=== PATIENT | male | born 1930 | race Caucasian/White ===

== ENCOUNTER 2016-12-31 18:00 | Inpatient (IN) | payer MEDICARE ==
[~2016-12-31] VITALS: Ht 167.6 cm; Wt 68.2 kg
[2016-12-31 18:37] LABS: BASOPHILS 0.3 % (0-2); EOSINOPHILS 0.5 % (0-7); HEMATOCRIT 43.3 % (42.0-54.0); HEMOGLOBIN 14.9 g/dL (13.5-17.5); IMMATURE GRANULOCYTES 0.2 % (0-5); LYMPHOCYTES 35.8 % (15-50); MCH 34.1 pg (26.0-34.0); MCHC 34.4 g/dL (31.0-37.0); MCV 99.1 fL (80.0-100.0); MEAN PLATELET VOLUME 11.7 fL (7.4-10.4); MONOCYTES 10.1 % (2-11); NEUTROPHILS 53.1 % (40-80); PLATELET COUNT 170 10x3/uL (130-400); RBC 4.37 10x6/uL (4.20-6.10); RDW 12.4 % (11.5-14.5); WBC 6.5 10x3/uL (4.8-10.8)
[2016-12-31 18:41] LABS: APPEARANCE CLEAR (CLEAR); BILIRUBIN NEGATIVE (NEGATIVE); COLOR YELLOW (YELLOW); GLUCOSE NEGATIVE (NEGATIVE); KETONE NEGATIVE (NEGATIVE); NITRITE NEGATIVE (NEGATIVE); PROTEIN NEGATIVE (NEGATIVE); SPECIFIC GRAVITY 1.015 (1.005-1.020); UROBILINOGEN NORMAL (NORMAL)
[2016-12-31 18:54] LABS: ALBUMIN 3.9 g/dL (3.4-5.0); ALKALINE PHOSPHATASE 91 U/L (46-116); ALT (SGPT) 15 U/L (10-68); BILIRUBIN - TOTAL 0.99 mg/dL (0.2-1.3); CALC OSMOLALITY 285 mosm/kg (275-300); CALCIUM 9.1 mg/dL (8.5-10.1); CARBON DIOXIDE 29.4 mmol/L (21.0-32.0); CHLORIDE - SERUM 106 mmol/L (98-107); GLUCOSE 106 mg/dL (74-106); POTASSIUM - SERUM 3.9 mmol/L (3.5-5.1); PROTEIN - SERUM 7.7 g/dL (6.4-8.2); SODIUM 143 mmol/L (136-145); UREA NITROGEN 15 mg/dL (7-18); eGFR NON AFRICAN AMERICAN 75 mL/min (90-120)
[2016-12-31 19:06] LABS: MAGNESIUM - SERUM 2.1 mg/dL (1.8-2.4)
[2016-12-31 19:08] LABS: UDS - AMPHET NEGATIVE QUAL (NEGATIVE); UDS - BARB NEGATIVE QUAL (NEGATIVE); UDS - BENZO NEGATIVE QUAL (NEGATIVE); UDS - COCAINE NEGATIVE QUAL (NEGATIVE); UDS - OPIATE NEGATIVE QUAL (NEGATIVE); UDS - PCP NEGATIVE QUAL (NEGATIVE); UDS - THC NEGATIVE QUAL (NEGATIVE)
[2016-12-31 23:27] LABS: HEMOGLOBIN A1C 5.7 % (4.8-6.0)
[2016-12-31 23:44] LABS: CHOL - HDL RATIO 4.1 ratio (2.3-4.9); LDL-HDL RATIO 2.8 ratio (1.5-3.5); THYROID STIMULATING HORMONE 2.13 uIU/mL (0.36-3.74)
--- NOTE | 2017-01-01 00:01 | NUR ---
NEW ADDMIT TO DOCTOR HAYES FROM [facility] FOR ISSUES RELATED TO AN ACUTE CHANGE IN MENTAL STATUS. PATIENT WAS FOUND TODAY BALLED UP ON THE FLOOR. SAYING HE IS GOING TO KILL HIS VA DOCTOR. FAMILY STATES HE HAS BEEN MILDLY AGGRESSIVE RECENTLY. RECEIEVED TO SENIOR VIA WHEELCHAIR WITH STAFF AND FAMILY BY HER SIDE. CALLED AND RECIEVED TELEPHONE CONSENT TO TREAT FROM PATIENTS . PATIENT STATES HE WANTS TO TALK TO HIS ABOUT HIS CODE STATUS. ALERT AND ORIENTED X2. CALM AND COOPERATIVE WITH ADMIT ASSESSMENT AND HISTORY. ORIENTED TO UNIT.
[2017-01-01 07:00] VITALS: BP 146/77
--- NOTE | 2017-01-01 08:30 | NUR ---
PT EATING BREAKFAST AT THIS TIME. NO MEDS TO ADMINISTER AT THIS TIME. PT DENIES NEEDS. WCTM.
[2017-01-01] MEDS ORDERED: ZANTAC150 MG PO (12:58)
[2017-01-01] MEDS ORDERED: BAYER CHEWABLE81 MG PO (12:59)
[2017-01-01] MEDS ORDERED: CARBIDOPA-LEVO1 EAC2 PO (13:00)
[2017-01-01] MEDS ORDERED: ARICEPT10 MG PO (13:01)
[2017-01-01] MEDS ORDERED: FLOMAX0.4 MG PO (13:02)
[2017-01-01] MEDS ORDERED: SINEMET 25-1001 EACH PO (13:08)
[2017-01-01 20:00] VITALS: BP 158/109
--- NOTE | 2017-01-01 20:47 | NUR ---
RECEIVED IN HALLWAY. WALKING TO HIS ROOM AT BEDTIME. VERY CONFUSED. CALM AND COOPERATIVE WITH CARE AND ASSESSMENTS. REDIRECT AND REORIENT NEEDED. RESTING IN BED WITH EYES CLOSED AT THIS TIME. CONTINUE PLAN OF CARE
--- NOTE | 2017-01-02 00:01 | NUR ---
PATIENT BECOMING INCREASINGLY ANXIOUS. WANTING TO LEAVE AND GO SEE HIS DOCTOR. UNABLE TO REDIRECT AND REORIENT. PRN ATIVAN 0.5 MG IM GIVEN FOR ANXIETY
--- NOTE | 2017-01-02 01:30 | NUR ---
CONTINUES TO HAVE INCREASING ANXIETY. RESIST REDIRECTION. EXIT SEEKING. PRN GEODON 10 MG GIVEN FOR INCREASING ANXIETY.
[2017-01-02 06:14] LABS: RAPID PLASMA REAGIN Non Reactive (Non Reactive)
[2017-01-02 08:19] LABS: VITAMIN D 25 HYDROXY 27.5 ng/mL (30.0-100.0)
[2017-01-02 08:59] VITALS: BP 140/85
--- NOTE | 2017-01-02 11:52 | PSY ---
PATIENT NAME:LUCILA TSE MEDICAL RECORD: [id number] : 30 LOCATION:ONEL [facility] ADMISSION DATE: 12/31/16 ACCOUNT: [id number] PSYCHIATRIC EVALUATION DATE OF EVALUATION: 01/01/17 IDENTIFYING DATA: The patient is 86 years old and he is admitted to the hospital on a voluntary basis. CHIEF COMPLAINT: Aggression. HISTORY OF PRESENT ILLNESS: The patient lives at home with his of more than 60 years. The family reports that the patient has a long-standing diagnosis of dementia and that recently he has become increasingly confused and angry. Some days are worse than others. He was brought to the Emergency Room yesterday after having several consecutive days where he was angry with the [facility]. Although anyone who has dealt with the [facility] understands his frustration, the anger is just in a way generalized, does not make much sense, and he is threatening to kill the [facility] doctors along with his . When asked about this today, he denies it, but it is clear he is very confused. He is most concerned about a locked cabinet in the dayroom kitchen area where supplies are kept and he thinks that his belongings are locked up in there and he is very focused on me giving him a jiménez to let him get his things so he can be on his way. PAST MEDICAL HISTORY: Significant for benign prostatic hypertrophy and gastroesophageal reflux disease. PAST PSYCHIATRIC HISTORY: Significant for diagnosis of Alzheimer disease made about 2 years ago. The patient apparently was having cognitive slippage about 10 years ago. FAMILY HISTORY: Unknown. ALLERGIES: No known drug allergies. CURRENT MEDICATIONS: Include aspirin, Flomax, Pepcid, Aricept, and Sinemet. SOCIAL HISTORY: The patient is . He has adult children. 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 Coming at this from a number of different angles was not successful. 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 He denies cigarette smoking, alcohol use, and of course drug use. MENTAL STATUS EXAMINATION: The patient is awake; alert; and oriented to person, place, not to time or situation. His mood is anxious. His affect is constricted. Thought processes are circumstantial. Memory, concentration, and abstraction abilities are at least moderately impaired. He denies any active intent to harm himself or others at this time. ASSETS: Supportive family members. LIABILITIES: Limited insight. DIAGNOSTIC IMPRESSION: AXIS I: Senile dementia of the Alzheimer's type with behavioral disturbances. AXIS II: None. AXIS III: Parkinson disease, benign prostatic hypertrophy, gastroesophageal reflux disease, and hyperlipidemia. AXIS IV: Mild psychosocial stressors. AXIS V: Global assessment of functioning is 25. PLAN: At this time, the patient is admitted to the hospital secondary to aggression and threats that are generalized and are related to an underlying dementing illness. He will be comprehensively evaluated from both medical, psychological, and social standpoint. His long-term prognosis is guarded. TRANSINT:[id number] Voice Confirmation ID: [id number] DOCUMENT ID: [id number] ROSARIO HAYES MD at 1152 CC: [id number] DICTATION DATE: 01/01/17 1406 LEAD NUCLEAR MEDICINE TECHNOLOGIST: 01/01/17 1444 ADM IN [facility] [address] [place] [address]
[2017-01-02 14:19] LABS: FOLATE (FOLIC ACID) - SERUM >20.0 ng/mL (>3.0)
[2017-01-02 19:35] VITALS: BP 131/67
--- NOTE | 2017-01-03 02:03 | NUR ---
RECEIVED IN HALLWAY OUTSIDE OF NURSES STATION. WALKING AROUND. VERY CONFUSED. CALM AND COOPERATIVE [facility] CARE AND ASSESSMENT. ENCOURAGE TO EXPRESS NEEDS. REDIRECT AND REORIENT NEEDED. RESTING IN BED WITH EYES CLOSED AT THIS TIME. CONTINUE PLAN OF CARE.
--- NOTE | 2017-01-03 08:21 | NUR ---
B) PATIENT IS AWAKE, HE WANDERS ALL OVER, HE IS ABLE TO AMBULATE WELL ON HIS OWN, BUT HE IS CONFUSED, HE KNOWS HIS NAME, BUT HE HAS NO RECALL. I) PROVIDE PRESCRIBED MEDS. R) PATIENT IS COMPLIANT WITH MEDS. P) CONTINUE POC.
[2017-01-03 09:52] VITALS: BP 120/81
--- NOTE | 2017-01-03 10:11 | NUR ---
ENOCH SPOKE WITH JENN RICKETTS, TO DISCUSS DISCHARGE PLANNING. SHE STATED SHE WANTED PPW SENT TO [facility]. SHE STATED THE PT'S HAS REFUSED PT CARE AND ASKED THEM TO HANDLE HIM BECAUSE SHE COULD NO LONGER HANDLE HIM IN THE HOME ENVIRONMENT. JENN STATED THAT IS WHY SHE SIGNED HIM INTO CARE. ENOCH STATED SHE WILL SEND PPW TO IN REQUESTED.
--- NOTE | 2017-01-03 14:06 | PN ---
PATIENT:LUCILA TSE MEDICAL RECORD: [id number] LOCATION:ONEL Gómez ADMISSION DATE: 12/31/16 PROGRESS NOTE DATE OF SERVICE: 01/02/2017 SUBJECTIVE: The patient's case was discussed with staff. He has no new complaint. OBJECTIVE: The patient is in good behavioral control with limited insight about his condition. He tolerates his medicines well. ASSESSMENT: No change in diagnoses. PLAN: Brief supportive and educational interventions were made. Fpc prognosis is guarded. TRANSINT:[id number] Voice Confirmation ID: [id number] DOCUMENT ID: [id number] ROSARIO HAYES MD at 1406 CC: [id number] DICTATION DATE: 01/02/17 1439 VENDING MACHINE HOST/HOSTESS: 01/02/17 1532 ADM IN [place] [id number] [place] [address]
--- NOTE | 2017-01-03 15:16 | NUR ---
ENOCH SPOKE WITH PT'S HAKEEM ALMANZAR AND HE STATED HE WANTED TO TRANSFER PT TO [facility] TO RECIEVE SERVICES DUE TO HIM HAVING BAD DEMENTIA. ENOCH STATED HE IS RECIEVING SERVICES FOR HIS DEMENTIA HERE ON THE UNIT. ALINE STATED HE DID NOT REALIZE HE WAS GETTING THOSE SERVICES. HE STATED HIS AND CAIO (PT'S ) SPOKE WITH HIM BECAUSE PT'S SON AND DIL WANTED BANK RECORDS TO GIVE TO [facility]. ALINE STATED PT HAS NOT BEEN TO THE DOCTOR IN SOME TIME DUE TO PT AND NOT BEING ABLE TO GET AROUND. ALINE STATED BOTH PT AND HIS ARE HAVING PROBLEMS WITH MEMORY. ENOCH CALLED PT'S DIL AND REPORTED CONVERSATION. DIL AND SON ARE GOING TO GET GUARDIANSHIP OVER PT TOMORROW DUE TO THE POOR CARE IN THE HOME ENVIRONMENT AND WANTING TO PLACE PT IN APPROPRIATE LEVEL OF CARE.
[2017-01-03 19:44] VITALS: BP 123/78
--- NOTE | 2017-01-04 02:02 | NUR ---
B) patient is alert and oriented to name, confused and wanders at times, ambulates independantly, no aggression noted I) Administered scheduled medications, monitored for safety, R) Medication compliant, very confused and keeps to himself, P) Continue plan of care.
--- NOTE | 2017-01-04 09:30 | NUR ---
PATIENT'S DAUGHTER IN LAW CALLED AND REQUESTS THAT IGNACIO CALL HER TO HELP HER EXPLAIN THE NECESSARY STEPS TO GET GUARDIANSHIP OVER PATIENT.
[2017-01-04 09:52] VITALS: BP 134/87
--- NOTE | 2017-01-04 11:20 | NUR ---
B) PATIENT IS AWAKE AND ALERT, BUT HE HAS POOR SHORT TERM MEMORY RECALL, STAFF HAD TO REMIND HIM TO PUT HIS TEETH IN THIS AM BEFORE BREAKFAST AND STAFF HAD TO SHOW HIM HIS ROOM AND BATHROOM MULTIPLE TIMES. PATIENT AMBULATES INDEPENDENTLY. PATIENT HAS NOT SHOWN ANY AGGRESSION TODAY. I) PROVIDE PRESCRIBED MEDS. R) PATIENT IS COMPLIANT WITH MEDS. P) CONTINUE POC.
--- NOTE | 2017-01-04 12:48 | NUR ---
PATIENT'S DAUGHTER IN LAW CALLED AGAIN AND REQUESTS THAT IGNACIO CALL HER TO ASSIST HER WITH FURTHER INFORMATION ON HOW TO HANDLE THE GUARDIANSHIP PROCESS.
--- NOTE | 2017-01-04 14:14 | NUR ---
ENOCH SPOKE WITH PT'S 'S NIECE THIS MORNING AND SHE STATED SHE WANTED TO HAVE PT MOVE INTO A PR FOSTER HOME. ENOCH EXPLAINED PT COULDN'T GO INTO ONE OF THOSE HOMES DUE TO HIS SEVERITY OF HIS DEMENTIA. ENOCH STATED PT NEEDS TO BE PLACED IN A 24/7 CARE ENVIRONMENT LIKE A SKILLED NURSING OR MEMORY CARE UNIT. SHE STATED SHE WOULD SPEAK TO PT'S ABOUT PLACEMENT. SHE STATED THEY WERE THINKING ABOUT [facility]. ENOCH REPORTED PT'S LILIAM BARAJAS WAS TRYING TO HELP PT'S PLACE HIM THERE BUT NEEDED RECORDS [place] WAS REQUESTING. ENOCH STATED IF SHE WAS UNCOMFORTABLE GIVING JENN RECORDS SHE COULD TURN THEM DIRECTLY INTO THE [place] HERSELF. ENOCH RETURNED A PHONE CALL FROM JENN IN THE AFTERNOON. SHE STATED THEY HAVE WENT TO SEE TYRONE HOLT AND WILL BE FILING FOR TEMPORARY EMERGENCY GUARDIANSHIP OVER PT DUE TO THE CONDITION AND LACK OF CARE HE HAS RECIEVED IN THE HOME ENVIRONMENT. SHE STATED SHE WENT TO GO PROPERTY MAINTENANCE SUPERVISOR THE RECORDS FROM PT'S AND WAS KICKED OFF THE PROPERTY BY PT'S STEP SON. SHE ASKED IF COMING FOR A VISIT WOULD BE TOO MUCH TODAY AND ENOCH STATED PT CAN ONLY HAVE TWO VISITORS AT A TIME. ENOCH ALSO STATED SINCE ALL INVOLVED ARE HIGH ON EMOTIONS IF AN ARGUMENT BROKE OUT ALL WOULD BE ASKED TO LEAVE THE UNIT BECAUSE IT IS NOT IN THE BEST INTEREST OF THE PATIENT. JENN VOICED UNDERSTANDING OF DISCUSSION AND STATED SHE WILL WAIT TO VISIT.
--- NOTE | 2017-01-04 14:26 | PN ---
PATIENT:LUCILA TSE MEDICAL RECORD: [id number] LOCATION:ONEL PerazaDignaJuan ADMISSION DATE: 12/31/16 PROGRESS NOTE DATE OF SERVICE: 01/03/2017 SUBJECTIVE: The patient's case was discussed with staff. He has no new complaint. OBJECTIVE: The patient is severely impaired cognitively. At times, he becomes agitated, but I think that is more related to the fact that he does not understand what is going on then to some other factor. ASSESSMENT: No change in diagnoses. PLAN: Supportive and educational interventions were made. Detention prognosis is guarded. TRANSINT:[id number] Voice Confirmation ID: [id number] DOCUMENT ID: [id number] ROSARIO HAYES MD at 1426 CC: [id number] DICTATION DATE: 01/03/17 1418 PLATING INSPECTOR: 01/03/17 1450 ADM IN [place] [address] [place] [id number]
[2017-01-04 19:37] VITALS: BP 131/73
--- NOTE | 2017-01-04 22:42 | NUR ---
B) patient is alert and oriented to self, restless and wanders at times, difficult to redirect at times, needs constant supervision, I) Administered scheduled medications, monitored for safety, R) Medication compliant, resting quietly in bed now. P) Continue plan of care.
[2017-01-05 06:28] VITALS: Ht 167.6 cm; Wt 68.2 kg
--- NOTE | 2017-01-05 08:43 | NUR ---
B) PATIENT IS AWAKE, HE IS VERY CONFUSED, HE DOES NOT KNOW WHERE HE IS LOCATED, HE CAN NOT RECALL ONE MINUTE TO THE NEXT. HE WAS REMINDED MULTIPLE TIMES TO PUT HIS TEETH IN AND HE DID NOT COMPREHEND, BUT THEN AT THE BREAKFAST TABLE HE SAID "HEY, I NEED MY TEETH" PATIENT AMBULATES AND HE WANDERS AT TIMES. HIS DID CALL AND CHECK ON HIM AND HIS SON AND DAUGHTER IN LAW CALLED TO CHECK ON HIM WELL. I) PROVIDE PRESCRIBED MEDS. R) PATIENT IS COMPLIANT WITH MEDS AND UNIT MILIEU. P) CONTINUE POC.
--- NOTE | 2017-01-05 09:32 | NUR ---
PATIENT WAS CHEWING HIS ROMERO AND HIS FRONT TOOTH BROKE OFF, PATIENT SAID HE THREW IT AWAY. TOOTH IS MISSING FROM TOP DENTURE.
[2017-01-05 09:44] VITALS: BP 141/68
--- NOTE | 2017-01-05 11:31 | PN ---
PATIENT:LUCILA TSE MEDICAL RECORD: [id number] LOCATION:ONEL MohamudJuan ADMISSION DATE: 12/31/16 PROGRESS NOTE DATE OF SERVICE: 01/04/2017 SUBJECTIVE: The patient's case was discussed with staff. She has no new complaint. OBJECTIVE: The patient is in poor behavioral control and very delusional. She has required multiple p.r.n. doses of Haldol and Ativan because of her agitated behavior. She has very limited insight about her condition. ASSESSMENT: No change in diagnoses. PLAN: Current medicines have been reviewed and will be maintained. Her long-term prognosis is guarded. TRANSINT:[id number] Voice Confirmation ID: [id number] DOCUMENT ID: [id number] ROSARIO HAYES MD at 1131 CC: [id number] DICTATION DATE: 01/04/17 1436 CONTAINER WASHER MACHINE: 01/04/17 2109 ADM IN [place] [id number] [place] [id number]
--- NOTE | 2017-01-05 11:31 | PN ---
PATIENT:LUCILA TSE MEDICAL RECORD: [id number] LOCATION:ONEL Gómez ADMISSION DATE: 12/31/16 PROGRESS NOTE DATE OF SERVICE: 01/04/2017 SUBJECTIVE: The patient's case was discussed with staff. He has no new complaint. OBJECTIVE: The patient is severely impaired cognitively with very poor insight about his situation. He is difficult to redirect. ASSESSMENT: No change in diagnoses. PLAN: The patient has a very advanced dementia. This is a late stage disease and I am not sure how he has been able to live at home with his . I was later told that there are some adult children who live in the house, which would explain things, but he clearly is quite advanced and all of the symptoms he is displaying are consistent with an advanced dementia. He absolutely requires 08-icyo-o-day supervision. To do less than that would put him at risk. His assisted prognosis is quite poor and he already is showing signs of the terminal phase of the disease by not eating adequately and losing weight. Based on this, I am going to give him Megace to stimulate his appetite. TRANSINT:[id number] Voice Confirmation ID: [id number] DOCUMENT ID: [id number] ROSARIO HAYES MD at 1130 CC: [id number] DICTATION DATE: 01/04/17 1438 SHOP COOPER: 01/04/17 2112 ADM IN [place] [id number] [place] [address]
[2017-01-05 19:30] VITALS: BP 115/86
--- NOTE | 2017-01-06 03:41 | NUR ---
B) Patient is alert and very confused, wanders at times, difficult to redirect I) Administered scheduled medications, monitored for falls and safety R) Medications compliant, calm and cooperative, P) Continue plan of care.
--- NOTE | 2017-01-06 06:01 | PN ---
PATIENT:LUCILA TSE MEDICAL RECORD: [id number] LOCATION:ONEL Gómez ADMISSION DATE: 12/31/16 PROGRESS NOTE DATE OF SERVICE: 01/05/2017 SUBJECTIVE: No new complaint. OBJECTIVE: The patient is very pleasant on approach. He discusses his past occupation, but remains confused. PHYSICAL EXAMINATION: On exam, mood is euthymic. Affect is bland. Speech is tangential. Content of thought is negative for overt psychosis. Sensorium is unchanged. ASSESSMENT: No change in diagnosis. PLAN: 1. Case management is working on jail placement. 2. We will continue all current medications and supportive therapy. TRANSINT:[id number] Voice Confirmation ID: [id number] DOCUMENT ID: [id number] JUAN JOSE CASANOVA III, MD at 0601 CC: [id number] DICTATION DATE: 01/05/17 1115 BOX HINGE AND LOCK ATTACHER: 01/05/[address] [facility] [address] [place] [address]
[2017-01-06 07:00] VITALS: BP 134/79
--- NOTE | 2017-01-06 15:40 | NUR ---
CONFUSED AND DISORIENTED.DOES NOT KNOW WHY HE IS HERE AND WANTS TO GO HOME.AMBULATES ABOUT UNIT WITH FAIRLY STEADY GAIT.COMPLIANT WITH MEDS,CRUSHED AND TAKEN IN APPLESAUCE.RASHARD CONTINUE WITH PLAN OF CARE,MONITOR FOR CHANGES AND SAFETY.
[2017-01-06 19:30] VITALS: BP 118/82
--- NOTE | 2017-01-07 02:11 | NUR ---
RECEIVED IN PATIENT ROOM. RESTING IN BED WITH EYES CLOSED. AWAKES TO VOICE. CALM AND COOPERATIVE WITH CARE AND ASSESSMENT. NO SIGNS OF AGGRESSION. VERY CONFUSED. ENCOURGAE TO EXPRESS NEEDS. REDIRECT AND REORIENT NEEDED. RESTING IN BED WTIH EYES CLOSED AT THIS TIME. CONTINUE PLAN OF CARE.
[2017-01-07 07:00] VITALS: BP 123/53
--- NOTE | 2017-01-07 08:45 | NUR ---
PATIENT IS ORIENTED TO SELF ONLY. CALM AND COOPERATIVE WITH STAFF AND PEERS. ASSESSMENT COMPLETED PER FLOW SHEET. MONITOR FOR SAFETY AND CHANGES. WILL CONTIN UE PLAN OF CARE.
[2017-01-07 19:30] VITALS: BP 117/81
--- NOTE | 2017-01-07 21:06 | NUR ---
RECEIVED IN BEDROOM. ASSIST TO BATHROOM. CALM AND COOPERATIVE WITH CARE AND ASSESSMENTS. NO SIGNS OF AGGRESSION. REDIRECT AND REORIENT NEEDED. RESTING IN BED EYES CLOSED AT THIS TIME. CONTINUE PLAN OF CARE
[2017-01-08 07:00] VITALS: BP 142/111
--- NOTE | 2017-01-08 10:07 | NUR ---
LATE ENTRY FROM 01/04 SW MET WITH PT'S AND PT'S CAIO, YOON. YOON SPOKE FOR THE STATING SHE IS UNABLE TO PROCESS THE CONVERSATION. YOON REQUESTED SW CALL NIECE, MINO, TO DISCUSS DISCHARGE PLANNING. SW STATED PT NEEDS 24/7 CARE AND HIS DISEASE PROGRESSION. FAMILY AGREES TO PT NEEDS TO BE PLACED IN SHELTER SETTING. SW DISCUSSED FAMILY CALLING NURSING HOMES STATING THE UNIT COULDN'T GET HIM UNDER CONTROL. ENOCH REPORTED PT HAS BEEN IN CONTROL SINCE BEGINNING STAY AND HE IS BEING MAINTAINED WITH MEDICATION AND SUPPORT THERAPIES. MINO STATED SHE WAS TOLD THE OPPOSITE AND APOLOGIZED FOR REPORTING OFF TO [place]. SW EXPLAINED SHE WAS WANTING TO CLARIFY SO NO MISCOMMUNICATIONS TO FACILITIES WOULD TAKE PLACE IN THE FUTURE. YOON AND MINO VOICED UNDERSTANDING OF DISCUSSION.
--- NOTE | 2017-01-08 10:10 | NUR ---
ASSESSMENT COMPLETED PER FLOW SHEET. PLEASANT MOOD, CALM AND COPERATIVE WITH STAFF. COMPLIANT TAKING MEDICATIONS CRUSHED IN APPLESAUCE. REDIRECT AND REORIENT NEEDED. MONITOR FOR SAFETY AND CHANGES. WILL CONTINUE PLAN OF CARE.
[2017-01-08 19:34] VITALS: BP 138/82
--- NOTE | 2017-01-08 21:17 | NUR ---
RECEIVED IN HALLWAY. WALKING ABOUT. VERY CONFUSED. CALM AND COOPERATIVE WITH CARE AND ASSESSMENTS. NO SIGNS OF AGGRESSION. REDIRECT AND REORIENT NEEDED. CONTINUES TO MOVE ABOUT ROOM. VERY CONFUSED. CONTINUE PLAN OF CARE
[2017-01-09 07:00] VITALS: BP 118/72
--- NOTE | 2017-01-09 08:30 | NUR ---
ORIENTED TO SELF ONLY. CALM AND COOPERATIVE WITH STAFF AND PEERS. COMPLIANT WITH TAKING MEDICATIONS. REDIRECT AND REORIENT NEEDED. CONTINUE PLAN OF CARE.
--- NOTE | 2017-01-09 13:50 | PN ---
PATIENT:LUCILA TSE MEDICAL RECORD: [id number] LOCATION:ONEL Gómez ADMISSION DATE: 12/31/16 PROGRESS NOTE DATE OF SERVICE: 01/08/2017 SUBJECTIVE: The patient's case was discussed with staff. He has no new complaint. OBJECTIVE: The patient denies intent to harm himself or others. He generally tolerates his medicines well. He is severely impaired cognitively. ASSESSMENT: No change in diagnoses. PLAN: The patient will be maintained on current medicines, which I have reviewed. I am going to increase the dose of his Namenda slightly. He is likely to have court appearance sometime this week for the guardianship and placement, we will follow that. He is severely impaired and his also has dementia and cannot care for him. The son has applied for guardianship and he seems to be the most reasonable person to accept this responsibility and there is no evidence that he has anything, but the best interest of the patient in mind. TRANSINT:[id number] Voice Confirmation ID: [id number] DOCUMENT ID: [id number] ROSARIO HAYES MD at 1350 CC: [id number] DICTATION DATE: 01/08/17 1436 INTAKE CLINICIAN: 01/08/17 1517 ADM IN [place] [address] [place] [address]
--- NOTE | 2017-01-09 13:56 | NUR ---
Nutrition Follow Up: Pt is eating 61% meal avg on a regular diet. +BM 01/05/17. Labs reviewed. Meds noted including Megace. Rec continue current diet. Rec continue appetite stimulant. RD following.
--- NOTE | 2017-01-09 19:51 | NUR ---
RECEIVED IN BEDROOM. MOVING ABOUT ROOM GETTING READY FOR BED. VERY CONFUSED. CALM AND COOPERATIVE WITH CARE AND ASSESSMENTS. NO SIGNS OF AGGRESSION. REDIRECT AND REORIENT NEEDED. RESTING EYES CLOSED IN BED. CONTINUE PLAN OF CARE
[2017-01-09 20:10] VITALS: BP 145/101
--- NOTE | 2017-01-10 09:30 | NUR ---
Alert, appetite good for b'fast, no difficulty feeding self, cooperative, quiet, med-compliant, confused. Oriented to self. Difficulty with conversation. No pain voiced. Denies needs.
[2017-01-10 09:36] VITALS: BP 133/75
--- NOTE | 2017-01-10 12:46 | PN ---
PATIENT:LUCILA TSE MEDICAL RECORD: [id number] LOCATION:ONEL Gómez ADMISSION DATE: 12/31/16 PROGRESS NOTE DATE OF SERVICE: 01/09/2017 SUBJECTIVE: The patient's case was discussed with staff. He has no new complaint. OBJECTIVE: The patient is intermittently compliant with medications. He is severely impaired cognitively. ASSESSMENT: No change in diagnoses. PLAN: Supportive and educational interventions were made. I have reviewed the patient's medications and I am going to stop or hold the Geodon for at least 12 hours to see if perhaps it is causing a little bit of excessive sedation. He may well need it at this dose or even at a lower dose, but I will not know for a day or so. TRANSINT:[id number] Voice Confirmation ID: [id number] DOCUMENT ID: [id number] ROSARIO HAYES MD at 1246 CC: [id number] DICTATION DATE: 01/09/17 1406 GEAR STRAIGHTENER: 01/09/17 1415 ADM IN [place] [address] [place] [address]
--- NOTE | 2017-01-10 18:28 | NUR ---
Sitting in dayroom, resting in recliner, eyes closed, resp even and unlabored, quiet and cooperative this shift.
[2017-01-10 19:19] VITALS: BP 146/81
--- NOTE | 2017-01-10 22:39 | NUR ---
RECEIVED IN PATIENT ROOM. RESTING IN BED WITH EYES OPEN. CALM AND COOPERATIVE WITH CARE AND ASSESSMENT. VERY CONFUSED. NO SIGNS OF AGGRESSION. REDIRECT AND REORIENT NEEDED. ENCOURAGE TO EXPRESS NEEDS. RESTING IN BED WITH EYES CLOSED AT THIS TIME. CONTINUE PLAN OF CARE.
[2017-01-11 08:11] VITALS: BP 153/83
--- NOTE | 2017-01-11 08:46 | NUR ---
B) PATIENT IS AMBULATING INDEPENDENTLY, HE IS CONFUSED AND DOES NOT MAKE ANY SENSE. HE IS PLEASANT AND HAS NOT SHOWN ANY AGGRESSION TODAY. HE HAS TO HAVE MANY PROMPTS TO WEAR HIS DENTURES AND GLASSES. I) PROVIDE PRESCRIBED MEDS. R) PATIENT IS COMPLIANT WITH MEDS AND UNIT MILIEU. P) CONTINUE POC.
--- NOTE | 2017-01-11 09:40 | NUR ---
SW CALLED TO SPEAK TO PT'S , BRYAN, ON HER REQUEST. NO ANSWER WHEN ATTEMPTED PHONE CALL.
--- NOTE | 2017-01-11 09:43 | NUR ---
ENOCH SPOKE WITH , BRYAN, SHE STATED SHE WANTS TO TAKE THE PATIENT HOME WHEN DOCTORS THINK HE IS STABLE ENOUGH TO DISCHARGE. SHE STATED SHE WILL NOT PLACE HIM IN A FACILITY BECAUSE SHE NEEDS HIM HOME. ENOCH STATED IT IS NOT RECOMMENDED FOR PT TO GO INTO THE HOME ENVIRONMENT WITHOUT 24/7 CARE DUE TO HIS COGNITIVE DECLINE AND DISEASE PROGRESSION. BRYAN STATED SHE UNDERSTANDS THE MD'S RECOMMENDATIONS BUT THINKS HE WILL BE BEST IN THE HOME ENVIRONMENT. SW EDUCATED ON SAFETY IN THE HOME ENVIRONMENT AND THE AMOUNT OF CARE THE PT WILL NEED. BRYAN VOICED UNDERSTANDING.
--- NOTE | 2017-01-11 12:46 | PN ---
PATIENT:LUCILA TSE MEDICAL RECORD: [id number] LOCATION:ONEL Gómez ADMISSION DATE: 12/31/16 PROGRESS NOTE DATE OF SERVICE: 01/10/2017 SUBJECTIVE: The patient's case was discussed with staff. He has no new complaint. OBJECTIVE: The patient is in good behavioral control. He has poor insight about his condition. ASSESSMENT: No change in diagnoses. PLAN: The patient is reasonably stable. He is not acutely dangerous and I do think he can be transitioned out of the hospital as soon as appropriate placement is arranged. I know that his court procedure is pending. His son has applied for guardianship. The patient's , of the past 5 years, is clearly impaired and it would be my recommendation that if the patient is allowed to go home with his that they must have 36-vyjx-j-day supervision for his safety. TRANSINT:[id number] Voice Confirmation ID: [id number] DOCUMENT ID: [id number] ROSARIO HAYES MD at 1246 CC: [id number] DICTATION DATE: 01/10/17 1251 BUSINESS STRATEGY MANAGER: 01/10/17 1321 ADM IN [facility] [address] [place] [address]
[2017-01-11 19:30] VITALS: BP 117/73
--- NOTE | 2017-01-11 22:10 | NUR ---
RECEIVED IN PATIENT ROOM. RESTING IN BED WITH EYES OPEN. VERY CONFUSED. CALM AND COOPERATIVE WITH CARE AND ASSESSMENT. ENCOURAGE TO EXPRESS NEEEDS. REDIRECT AND REORIENT NEEDED. RESTING IN BED WTIH EYES CLOSED AT THIS TIME. CONTINUE PLAN OF CARE.
--- NOTE | 2017-01-12 09:30 | NUR ---
PATIENT'S SPOUSE CALLED AND WANTED TO CHECK ON HIM, SHE ASKED THIS NURSE TO TELL HIM SHE LOVED HIM, WILL LET PATIENT KNOW SHE CALLED.
--- NOTE | 2017-01-12 09:31 | NUR ---
B) PATIENT IS AWAKE AND ALERT, HE IS CONFUSED AND NEEDS ASSISTANCE TO PUT IN HIS TEETH, TO GO TO THE BATHROOM, TO DRESS, HE HAS POOR SHORT TERM MEMORY RECALL. I) PROVIDE PRESCRIBED MEDS. R) PATIENT IS COMPLIANT WITH MEDS AND UNIT MILIEU. P) CONTINUE POC.
[2017-01-12 11:12] VITALS: BP 112/62
--- NOTE | 2017-01-12 12:20 | PN ---
PATIENT:LUCILA TSE MEDICAL RECORD: [id number] LOCATION:[facility] ADMISSION DATE: 12/31/16 PROGRESS NOTE DATE OF SERVICE: 01/11/2017 SUBJECTIVE: The patient's case was discussed with staff. He has no new complaint. OBJECTIVE: The patient denies intent to harm himself or others. He generally tolerates his medicines well. Eye contact is fair. ASSESSMENT: No change in diagnoses. PLAN: Current medicines have been reviewed and will be maintained. Long-term prognosis is guarded. I anticipate he can be transitioned to a skilled nursing soon. TRANSINT:[id number] Voice Confirmation ID: [id number] DOCUMENT ID: [id number] ROSARIO HAYES MD at 1220 CC: [id number] DICTATION DATE: 01/11/17 1305 ELECTRIC CAR OPERATOR: 01/11/17 1314 ADM IN [facility] [address] [id number]
[2017-01-12 19:54] VITALS: BP 134/79
--- NOTE | 2017-01-12 23:41 | NUR ---
B) patient is alert and very confused, unable to express his needs verbally, can not find his bathroom without assistance, I) Administered scheduled medications crushed , monitored for safety, redirected as needed, R) Medication compliant, resting in bed now, P) Continue plan of care.
--- NOTE | 2017-01-13 10:34 | PN ---
PATIENT:LUCILA TSE MEDICAL RECORD: [id number] LOCATION:[facility]EL [facility] ADMISSION DATE: 12/31/16 PROGRESS NOTE DATE OF SERVICE: 01/12/2017 SUBJECTIVE: The patient's case was discussed with staff. He has no new complaint. OBJECTIVE: The patient is significantly impaired cognitively, but calm and cooperative. He has almost no short term memory. He has not been aggressive with staff. He is very appropriate for a intermediate placement and at this point, we are simply waiting for the approval from the appropriate sources. TRANSINT:[id number] Voice Confirmation ID: [id number] DOCUMENT ID: [id number] ROSARIO HAYES MD at 1034 CC: [id number] DICTATION DATE: 01/12/17 1230 SHOP MECHANIC: 01/12/17 1238 ADM IN [address] [place] [address]
--- NOTE | 2017-01-13 10:40 | NUR ---
B) PATIENTS SPOUSE CALLED TO CHECK ON HIM AND ASKED THIS NURSE TO TELL HIM SHE LOVED HIM, DID LET PATIENT KNOW, HE SAYS "CAN I TALK TO HER?" I) PROVIDE PRESCRIBED MEDS. R) PATIENT IS COMPLIANT WITH MEDS. HE IS CALM, HE HAS NOT BEEN AGGRESSIVE TODAY.
[2017-01-13 11:52] VITALS: BP 120/81
--- NOTE | 2017-01-13 19:28 | PN ---
PATIENT:LUCILA TSE MEDICAL RECORD: [id number] LOCATION:ONEL G[facility]z ADMISSION DATE: 12/31/16 PROGRESS NOTE DATE OF SERVICE: 01/13/2017 SUBJECTIVE: The patient's case was discussed with staff. He has no new complaint. OBJECTIVE: The patient denies intent to harm himself or others. He generally tolerates his medicines well. He is severely impaired cognitively, but has not been aggressive. ASSESSMENT: No change in diagnoses. PLAN: Current medicines and therapies will be maintained. His long-term prognosis is guarded. TRANSINT:[id number] Voice Confirmation ID: [id number] DOCUMENT ID: [id number] ROSARIO HAYES MD at 1928 CC: [id number] DICTATION DATE: 01/13/17 1041 KNITTING MACHINE MECHANIC: 01/13/17 1139 ADM IN [address] [place] [address]
[2017-01-13 20:27] VITALS: BP 118/52
--- NOTE | 2017-01-14 05:28 | NUR ---
B) patient is alert and very confused, wanders at times, patient found social workers office unlocked and went in and disrobed and had a bowel movement in her office at shift change. I) Administered scheduled medications, [facility] R) Medication compliant, resting in bed now, P) Continue plan of care.
[2017-01-14 07:00] VITALS: BP 162/63
--- NOTE | 2017-01-14 09:11 | NUR ---
ADMINISTERED MORNING MEDICATION CRUSHED IN APPLESAUCE WITHOUT DIFFICULTY. ALERT AND ORIENTED X2. PLEASANT AFFECT. NO S/SX OF ACUTE DISTRESS NOTED. WILL CONTINUE TO MONITOR
--- NOTE | 2017-01-14 16:50 | NUR ---
ORIENTED TO SELF ONLY.IS AMBULATORY,WANDERS ABOUT UNIT.IS COMPLIANT WITH STAFF AND MEDS.MEDS TAKEN CRUSHED AND IN APPLESAUCE.WILL CONTINUE WITH PLAN OF CARE,MONITOR FOR CHANGES AND SAFETY.
--- NOTE | 2017-01-14 19:52 | NUR ---
RECEIVED IN BEDROO. UP FROM BED TO BATHROOM. ALARM SOUNDING. CALM AND COOPERATIVE WITH CARE AND ASSESSMENT. REDIRECT AND REORIENT NEEDED. VERY CONFUSED. RESTING ON BED EYES OPEN AT THIS TIME. CONTINUE PLAN OF CARE
[2017-01-14 20:07] VITALS: BP 120/64
[2017-01-15 07:00] VITALS: BP 147/99
--- NOTE | 2017-01-15 09:19 | NUR ---
PT RESTING IN DINNER ROOM AT TABLE TOOK ALL MEDS COOPERATIVE AND PLEANENT NO PROBLEMS WILL MONITER
--- NOTE | 2017-01-15 14:12 | PN ---
PATIENT:LUCILA TSE MEDICAL RECORD: [id number] LOCATION:ONEL G[facility]mez ADMISSION DATE: 12/31/16 PROGRESS NOTE DATE OF SERVICE: 01/14/2017 SUBJECTIVE: The patient's case was discussed with staff. He has no new complaint. OBJECTIVE: The patient is in good behavioral control with limited insight about his condition. He tolerates his medicines well. ASSESSMENT: No change in diagnoses. PLAN: Supportive and educational interventions were made. Half-Way prognosis is guarded. TRANSINT:[id number] Voice Confirmation ID: [id number] DOCUMENT ID: [id number] ROSARIO HAYES MD at 1412 CC: [id number] DICTATION DATE: 01/14/17 1056 INFORMATION TECHNOLOGY DIRECTOR: 01/14/17 1334 ADM IN [id number] [place] [address]
[2017-01-15 19:30] VITALS: BP 116/71
--- NOTE | 2017-01-16 01:35 | NUR ---
RECEIVED IN BEDROOM. RESTING IN BED WITH EYES CLOSED. CALM AND COOPERATIVE WITH CARE AND ASSESSMENT THIS EVENING.VERY CONFUSED. STANDS FROM BED WITHOUT ASSIST. CORNELIO ALARM SOUNDING. REDIRECT AND REORIENT. REINFORCE FALLS SAFETY. RESTING IN BED EYES CLOSED. CONTINUE PLAN OF CARE
[2017-01-16 07:00] VITALS: BP 127/84
--- NOTE | 2017-01-16 12:29 | NUR ---
Nutrition Follow Up: Pt is eating 79% meal avg on a regular diet. +BM 01/12/17. No BM x 4 days. Meds noted including Megace. No new labs. Rec continue current diet. Rec continue appetite stimulant. Rec consider a bowel regimen. RD following.
--- NOTE | 2017-01-16 12:48 | NUR ---
B) PATIENT IS CONFUSED, HE AMBULATES INDEPENDENTLY. HE ASKS THE SAME QUESTIONS OVER AND OVER. I) PROVIDE PRESCRIBED MEDS. R) PATIENT IS COMPLIANT WITH MEDS. P) CONTINUE POC.
--- NOTE | 2017-01-16 13:23 | PN ---
PATIENT:LUCILA TSE MEDICAL RECORD: [id number] LOCATION:ONEL G[facility]mez ADMISSION DATE: 12/31/16 PROGRESS NOTE DATE OF SERVICE: 01/15/2017 SUBJECTIVE: The patient's case was discussed with staff. He has no new complaint. OBJECTIVE: The patient denies intent to harm himself or others. He tolerates his medicines well. Eye contact is fair. ASSESSMENT: No change in diagnoses. PLAN: Brief supportive and educational interventions were made. Long-term prognosis is guarded. TRANSINT:[id number] Voice Confirmation ID: [id number] DOCUMENT ID: [id number] ROSARIO HAYES MD at 1323 CC: [id number] DICTATION DATE: 01/15/17 1419 TIME CYCLE OPERATOR: 01/15/17 1548 ADM IN [id number] [place] [address]
[2017-01-16] MEDS ORDERED: NAMENDA5 MG PO (13:38)
[2017-01-16] MEDS ORDERED: MEGACE40 MG PO (13:38)
[2017-01-16] MEDS ORDERED: VITAMIN D5000 UNIT PO (13:39)
[2017-01-16] MEDS ORDERED: VITAMIN B-121000 MCG PO (13:39)
--- NOTE | 2017-01-16 23:39 | NUR ---
RECEIVED IN BEDROOM. RESTING IN BED WITH EYES CLSOED. RESPONDS TO VOICE. VERY CONFUSED. CALM AND COOPERATIVE WITH CARE AND ASSESSMENTS. NO SIGNS OF AGGRESSSION. REDIRECT AND REORIENT NEEDED. RESTING IN BED WITH EYES CLOSED AT THIS TIME. CONTINUE PLAN OF CARE
--- NOTE | 2017-01-17 10:15 | NUR ---
B) PATIENT IS AWAKE AND ALERT, BUT HE IS VERY CONFUSED, HE IS NOT ABLE TO FOLLOW SIMPLE DIRECTION. HE AMBULATES INDEPENDENTLY. I) PROVIDE PRESCRIBED MEDS. R) PATIENT IS COMPLIANT WITH MEDS AND UNIT [facility].
[2017-01-17 10:30] VITALS: BP 138/83
--- NOTE | 2017-01-17 17:00 | PN ---
PATIENT:LUCILA TSE MEDICAL RECORD: [id number] LOCATION:ONEL G[facility]mez ADMISSION DATE: 12/31/16 PROGRESS NOTE DATE OF SERVICE: 01/16/2017 SUBJECTIVE: The patient's case was discussed with staff. He has no new complaint. OBJECTIVE: The patient is in good behavioral control with limited insight about his condition. He generally tolerates his medicines well. ASSESSMENT: No change in diagnoses. PLAN: Current medicines have been reviewed and will be maintained. The patient can be transitioned out of the hospital as soon as the court orders the guardianship and he is accepted to the care home. TRANSINT:[id number] Voice Confirmation ID: [id number] DOCUMENT ID: [id number] ROSARIO HAYES MD at 1700 CC: [id number] DICTATION DATE: 01/16/17 1337 ROCK BREAKER: 01/16/17 1431 ADM IN [facility] [address] [place] [address]
[2017-01-17 19:30] VITALS: BP 155/76
--- NOTE | 2017-01-17 23:34 | NUR ---
B) patient is alert and very confused, zero short term memory, wanders at times looking for his bathroom, I) Administered scheduled medications crushed in apple sauce, monitored for safety, R) Medication compliant, rresting quietly in bed now, P) Continue plan of care.
--- NOTE | 2017-01-18 07:37 | NUR ---
B) PATIENT IS AWAKE AND CALM, HE IS ORIENTED TO SELF ONLY. HE HAS NOT SHOWN ANY AGGRESSION TODAY. HE IS ABLE TO AMBULATE INDEPENDENTLY. I) PROVIDE PRESCRIBED MEDS. R) PATIENT IS COMPLIANT WITH MEDS. P) CONTINUE POC.
[2017-01-18 09:47] VITALS: BP 143/68
[2017-01-18 12:37] VITALS: BP 143/68
--- NOTE | 2017-01-18 14:07 | PN ---
PATIENT:LUCILA TSE MEDICAL RECORD: [id number] LOCATION:ONEL G[facility]mez ADMISSION DATE: 12/31/16 PROGRESS NOTE DATE OF SERVICE: 01/17/2017 SUBJECTIVE: The patient's case was discussed with staff. He has no new complaint. OBJECTIVE: The patient is quite confused, but has not been aggressive. He has limited insight about his condition. ASSESSMENT: No change in diagnosis. PLAN: Supportive and educational interventions were made. Long-term prognosis is guarded. The patient may be transitioned out of the hospital at any time. There are discharge planning issues that are delaying this, but once those are worked out, he is appropriate to be discharged. TRANSINT:[id number] Voice Confirmation ID: [id number] DOCUMENT ID: [id number] ROSARIO HAYES MD at 1407 CC: [id number] DICTATION DATE: 01/17/17 1733 MOTORCYCLE DELIVERY DRIVER: 01/18/17 0002 ADM IN [facility] [address] [place] [address]
--- NOTE | 2017-01-18 15:14 | NUR ---
PATIENT REFUSES HIS CARBADOPA, HE SPOKE TO DR. HAYES AND NOW THE PATIENT IS VERY UPSET, HE SAYS "I AM GOING HOME, NO ONE HAS THE RIGHT TO TELL ME, I'M GOING HOME, MY DAUGHTER IN LAW HAS NO RIGHT TO DO ANYTHING, I'LL GET A FAVOR MAKER"
--- NOTE | 2017-01-18 16:17 | NUR ---
GRISEL IN LAW REQUESTS MEDS BE CALLED IN PRIOR TO PATIENT D/C, CALLED MEDS INTO [facility] THE PHARMACIST.
[2017-01-18 19:59] VITALS: BP 143/68
--- NOTE | 2017-01-19 01:49 | NUR ---
B) Patient is alert and oriented to self, calm and cooperative with staff this shift, no aggression noted, I) Administered scheduled medications crushed, monitored for safety, R) Medication compliant, patient discharges in the AM, P) Continue plan of care.
[2017-01-19 08:30] VITALS: BP 135/054
--- NOTE | 2017-01-19 10:05 | PN ---
PATIENT:LUCILA TSE MEDICAL RECORD: [id number] LOCATION:ONEL G[facility]mez ADMISSION DATE: 12/31/16 PROGRESS NOTE DATE OF SERVICE: 01/18/2017 SUBJECTIVE: The patient's case was discussed with staff. He has no new complaint. OBJECTIVE: The patient denies intent to harm himself or others. He tolerates his medicines well. Eye contact is fair. ASSESSMENT: No change in diagnoses. PLAN: The patient's discharge issues have been resolved. I anticipate he will be transitioned out of the hospital tomorrow. TRANSINT:[id number] Voice Confirmation ID: [id number] DOCUMENT ID: [id number] ROSARIO HAYES MD at 1005 CC: [id number] DICTATION DATE: 01/18/171427 DOG AND CAT FOOD COOK: 01/18/17 1535 ADM IN [facility] [address] [place] [address]
--- NOTE | 2017-01-19 21:07 | PN ---
PATIENT:LUCILA TSE MEDICAL RECORD: [id number] LOCATION:ONEL G[facility]mez ADMISSION DATE: 12/31/16 PROGRESS NOTE DATE OF SERVICE: 01/19/2017 SUBJECTIVE: No new complaint. OBJECTIVE: The patient is scheduled for discharge today. The plan is for him to go home with a family member, either a son or daughter. The patient has been compliant with medications and is stable for discharge. On exam, mood is euthymic. Affect is bland. Speech is rather terse. Content of thought is negative for overt psychosis. Sensorium shows no change. ASSESSMENT: No change in diagnosis. PLAN: The patient is scheduled for discharge later today. TRANSINT:[id number] Voice Confirmation ID: [id number] DOCUMENT ID: [id number] JUAN JOSE CASANOVA III, MD at 2107 CC: [id number] DICTATION DATE: 01/19/17 1155 PRINTER SLOTTER HELPER: 01/19/17 1248 DIS IN 01/19/17 [facility] [address] [place] [address]
--- NOTE | 2017-01-26 09:26 | DS ---
PATIENT:LUCILA TSE :30 MEDICAL RECORD: [id number] DISCHARGE SUMMARY ADMISSION DATE: 12/31/16 DISCHARGE DATE: 01/19/17 IDENTIFYING DATA: The patient is 86 years old and he was admitted to the hospital on a voluntary basis because of aggression. The patient lives at home with his of more than 60 years. The family reports that he has a longstanding diagnosis of dementia and has recently become increasingly confused and angry. He was brought to the Emergency Room after having several consecutive days in which he was angry with the [facility]. He apparently had dealt with [facility] and was very frustrated by them and was threatening to kill the staff and doctors who work there along with his . He was brought to the Emergency Room for evaluation and treatment. He quickly calmed and denied he ever made any such statements. He was treated with both mood stabilizing and memory enhancing medications and showed significant improvement. He was subsequently transitioned to a long-term care setting. DISCHARGE DIAGNOSES: AXIS I: Senile dementia, the Alzheimer's type with behavioral disturbances. AXIS II: None. AXIS III: Parkinson disease, benign prostatic hypertrophy, gastroesophageal reflux disease, and hyperlipidemia. AXIS IV: Mild psychosocial stressors. AXIS V: Global assessment of functioning is 30. PLAN: At the time of discharge, the patient was not acutely dangerous to himself or others. He was tolerating his medications well. His long-term prognosis is guarded. TRANSINT:[id number] Voice Confirmation ID: [id number] DOCUMENT ID: [id number] ROSARIO HAYES MD at 0926 CC: [id number] DICTATION DATE: 01/25/171406 SALES AND SERVICE ASSOCIATE: 01/25/17 1517 DIS IN 01/19/17 [facility] [address] [place] [address]
== END 2017-01-19 15:30 | disposition home or self-care (01) | DRG 57 ==
LOC: D.ER 18:00 → D.PSYCH 21:13
PROVIDERS: Emergency Medicine; Nurse Practitioner Family; ADMIT Psychiatry & Neurology Psychiatry
DX: G30.1 Alzheimer's disease with late onset (principal); F02.81 Dementia in other diseases classified elsewhere, unspecified severity, with behavioral disturbance; G20 Parkinson's disease; N40.0 Benign prostatic hyperplasia without lower urinary tract symptoms; K21.9 Gastro-esophageal reflux disease without esophagitis; E78.5 Hyperlipidemia, unspecified; E53.8 Deficiency of other specified B group vitamins; E55.9 Vitamin D deficiency, unspecified

== ENCOUNTER 2017-02-08 14:08 | Inpatient (IN) | payer MEDICARE ==
[~2017-02-08] VITALS: Ht 167.6 cm; Wt 68.0 kg
--- NOTE | ~2017-02-08 | PN ---
PATIENT:LUCILA TSE MEDICAL RECORD: [id number] LOCATION:ONEL G[facility]mez ADMISSION DATE: 02/08/17 PROGRESS NOTE DATE OF SERVICE: 02/13/2017 SUBJECTIVE: No new complaint noted. OBJECTIVE: The patient has been fairly stable. He is taking medications as prescribed. On exam, mood is for the most part euthymic. Affect is bland. Speech is rather terse. Content of thought negative for overt psychosis. Sensorium unchanged. ASSESSMENT: No change in diagnosis. PLAN: 1. Maintain current medication. 2. Continue supportive therapy. TRANSINT:[id number] Voice Confirmation ID: [id number] DOCUMENT ID: [id number] JUAN JOSE CASANOVA III, MD at 1020 CC: [id number] DICTATION DATE: 02/13/17 1146 VACUUM DRUM DRIER OPERATOR: 02/13/17 1210 ADM IN [id number] [place] [address]
--- NOTE | ~2017-02-08 | DS ---
PATIENT:LUCILA TSE :30 MEDICAL RECORD: [id number] DISCHARGE SUMMARY ADMISSION DATE: 02/08/17 DISCHARGE DATE: DATE OF ADMISSION: 02/08/2017. DATE OF DISCHARGE: 02/09/2017. HISTORY: The patient was just admitted last night. After workup had been completed, the family elected to have the patient discharged and transferred to the [facility]. For complete history, please refer to the recently dictated evaluation. COURSE IN THE HOSPITAL: The patient maintained on all current medications. He will be discharged to the care of the family, so that they may admit him to the [facility] in [place]. FINAL DIAGNOSES: AXIS I: Senile dementia of the Alzheimer's type with behavioral disturbance. AXIS II: No diagnosis. AXIS III: Parkinson disease, benign prostatic hypertrophy, gastroesophageal reflux disease, and hyperlipidemia. AXIS IV: Moderate. AXIS V: 32. PLAN: The patient is discharged on current medications to the care of the family, so that he may be admitted to the [facility] in [place]. TRANSINT:[id number] Voice Confirmation ID: [id number] DOCUMENT ID: [id number] JUAN JOSE CASANOVA III, MD at 0503 CC: [id number] DICTATION DATE: 02/09/17 1149 MARK UP DESIGNER: 02/09/17 1327 [place] [address]
--- NOTE | ~2017-02-08 | PN ---
PATIENT:LUCILA TSE MEDICAL RECORD: [id number] LOCATION:ONEL G[facility]mez ADMISSION DATE: 02/08/17 PROGRESS NOTE DATE OF SERVICE: 02/12/2017 SUBJECTIVE: The patient's case was discussed with staff. He has no new complaint. OBJECTIVE: The patient denies intent to harm himself or others. He tolerates his medicines well. ASSESSMENT: No change in diagnoses. PLAN: Supportive and educational interventions were made. Fdc prognosis is guarded. TRANSINT:[id number] Voice Confirmation ID: [id number] DOCUMENT ID: [id number] ROSARIO HAYES MD at 1029 CC: [id number] DICTATION DATE: 02/12/17 1132 CHAIRMAN CEO: 02/12/17 1215 ADM IN [place] [id number]
--- NOTE | ~2017-02-08 | HP ---
PATIENT: LUCILA TSE MEDICAL RECORD: [id number] ACCOUNT: [id number] LOCATION:ONEL Feliz : 30 ADMISSION DATE: 02/08/17 HISTORY AND PHYSICAL EXAMINATION IDENTIFYING DATA: This is the [facility] recent [facility] admission for this 86-year-old single white male. The patient was previously admitted here between 12/31/2016 and 01/19/2017. The patient was admitted from home. HISTORY OF PRESENT ILLNESS: The patient has a long history of dementia and had prior to the previous admission had become quite confused and agitated. He has expressed a great deal of hostility toward the [facility] because he did not feel like they were taking care of him. He was worked up and eventually stabilized on medication and returned home. Since that time, he has continued to deteriorate. He has been refusing medication, oral intake is markedly diminished. He is exhibiting paranoid delusions again regarding the [facility] and has threatened to kill individuals at the [facility] because of worsening behavior and further deterioration, the patient is readmitted. PAST MEDICAL HISTORY: Significant for gastroesophageal reflux disease and benign prostatic hyperplasia. FAMILY HISTORY: Noncontributory. SOCIAL HISTORY: The patient has adult children involved in his care. No substance abuse issues noted. ALLERGIES: None listed. MENTAL STATUS: On exam, the patient is extremely confused. He is oriented to person only. Her mood is euthymic. Affect very constricted. Flow of thought is very tangential. Content of thought exhibits paranoid delusional ideation and some homicidal ideation. Memory is globally impaired. DIAGNOSES: AXIS I: Alzheimer dementia with behavioral disturbance. AXIS II: No diagnosis. AXIS III: History of Parkinson disease, benign prostatic hypertrophy, gastroesophageal reflux disease, and hyperlipidemia. AXIS IV: Moderate. AXIS V: 30. PLAN: 1. The patient is admitted for further medical and psychiatric workup. 2. Daily supportive therapy. 3. Coordinate with family regarding aftercare. TRANSINT:[id number] Voice Confirmation ID: [id number] DOCUMENT ID: [id number] HISTORY AND PHYSICAL [id number] LUCILA TSE JOCELYNE NEIL, JUAN JOSE Diggs MD at 0503 CC: [id number] DICTATION DATE: 02/09/17 112 STUDIO SALES ASSOCIATE: 02/09/17 1158 ADM IN [address] [address]
--- NOTE | ~2017-02-08 | PN ---
PATIENT:LUCILA TSE MEDICAL RECORD: [id number] LOCATION:ONEL G[facility]mez ADMISSION DATE: 02/08/17 PROGRESS NOTE DATE OF SERVICE: 02/14/2017 SUBJECTIVE: No new complaint. OBJECTIVE: The patient has continued to be stable. No new behavioral problems. No combativeness. He is taking medications as prescribed. On exam, mood is euthymic. Affect is bland. Speech is terse. Content of thought focuses only on somatic concerns. Sensorium shows no change. ASSESSMENT: No change in diagnosis. PLAN: 1. Continue current treatment plan. 2. Anticipate discharge tomorrow. TRANSINT:[id number] Voice Confirmation ID: [id number] DOCUMENT ID: [id number] JUAN JOSE CASANOVA III, MD at 1946 CC: [id number] DICTATION DATE: 02/14/17 1136 CATALYST OPERATOR CHIEF: 02/14/17 1202 ADM IN [facility] [address] [place] [address]
--- NOTE | ~2017-02-08 | DS ---
PATIENT:LUCILA TSE :30 MEDICAL RECORD: [id number] DISCHARGE SUMMARY ADMISSION DATE: 02/08/17 DISCHARGE DATE: 02/15/17 DATE OF ADMISSION: 02/08/2017. DATE OF DISCHARGE: 02/15/2017. HISTORY: Second recent [facility] admission for this 86-year-old white male. He had been previously admitted between 12/31/2016 and 01/19/2017. The patient has a long history of dementia and had become agitated and confused prior to admission. He had, in the past, been treated at the [facility]. He had recently been refusing medication and had expressed some homicidal ideation and agitation. For further details, please see previously dictated history. COURSE IN THE HOSPITAL: The patient was seen in consultation by Dr. Conway. She noted the presence of Parkinson disease, hyperlipidemia, benign prostatic hyperplasia, and GERD. The patient was maintained on Aricept 10 mg h.s., Flomax 0.4 mg daily, Namenda 5 mg b.i.d., Megace 20 mg b.i.d., Pepcid 20 mg b.i.d., vitamin B12 and D supplements, Sinemet 25-100 one-half tab t.i.d., aspirin 81 mg daily. Over the course of the hospitalization, the patient showed very good resolution of his agitation. Over the course of hospitalization, the patient showed good behavioral improvement. He was felt to be stable for discharge at the time of discharge. The family will continue to care for him at home. FINAL DIAGNOSES: AXIS I: Alzheimer dementia with behavioral disturbance. AXIS II: No diagnosis. AXIS III: Parkinson disease, benign prostatic hyperplasia, gastroesophageal reflux disease, and hyperlipidemia. AXIS IV: Moderate. AXIS V: 36. PLAN: 1. The patient is discharged on current medications. 2. Follow up with his primary care physician. 3. Diet and activities as tolerated. TRANSINT:[id number] Voice Confirmation ID: [id number] DOCUMENT ID: [id number] JUAN JOSE CASANOVA III, MD at 0143 CC: [id number] DICTATION DATE: 02/15/17 1010 RECEIVING WEIGHER: 02/15/17 1458 DIS IN 02/15/17 [address] [place] [address]
[~2017-02-08 14:08] MED LIST: ARICEPT10 MG PO; BAYER CHEWABLE81 MG PO; CARBIDOPA-LEVO1 EAC2 PO; FLOMAX0.4 MG PO; MEGACE40 MG PO; NAMENDA5 MG PO; SINEMET 25-1001 EACH PO; VITAMIN B-121000 MCG PO; VITAMIN D5000 UNIT PO; ZANTAC150 MG PO
[2017-02-08 14:52] LABS: UDS - AMPHET NEGATIVE QUAL (NEGATIVE); UDS - BARB NEGATIVE QUAL (NEGATIVE); UDS - BENZO NEGATIVE QUAL (NEGATIVE); UDS - COCAINE NEGATIVE QUAL (NEGATIVE); UDS - OPIATE NEGATIVE QUAL (NEGATIVE); UDS - PCP NEGATIVE QUAL (NEGATIVE); UDS - THC NEGATIVE QUAL (NEGATIVE)
[2017-02-08 14:55] LABS: APPEARANCE CLEAR (CLEAR); BILIRUBIN NEGATIVE (NEGATIVE); COLOR DK YELLOW (YELLOW); GLUCOSE 250 mg/dL (NEGATIVE); KETONE NEGATIVE (NEGATIVE); NITRITE NEGATIVE (NEGATIVE); PROTEIN NEGATIVE (NEGATIVE); UROBILINOGEN NORMAL (NORMAL)
[2017-02-08 15:03] LABS: BASOPHILS 0.2 % (0-2); EOSINOPHILS 0.4 % (0-7); HEMATOCRIT 42.6 % (42.0-54.0); HEMOGLOBIN 14.8 g/dL (13.5-17.5); IMMATURE GRANULOCYTES 0.2 % (0-5); LYMPHOCYTES 26.7 % (15-50); MCH 33.9 pg (26.0-34.0); MCHC 34.7 g/dL (31.0-37.0); MCV 97.7 fL (80.0-100.0); MEAN PLATELET VOLUME 10.9 fL (7.4-10.4); MONOCYTES 10.6 % (2-11); NEUTROPHILS 61.9 % (40-80); PLATELET COUNT 163 10x3/uL (130-400); RBC 4.36 10x6/uL (4.20-6.10); RDW 12.4 % (11.5-14.5); WBC 8.3 10x3/uL (4.8-10.8)
[2017-02-08 15:22] LABS: ALBUMIN 3.5 g/dL (3.4-5.0); ANION GAP 13.9 mmol/L (8-16); BILIRUBIN - TOTAL 0.67 mg/dL (0.2-1.3); CALCIUM 9.1 mg/dL (8.5-10.1); CARBON DIOXIDE 26.5 mmol/L (21.0-32.0); CREATININE - SERUM 1.1 mg/dL (0.6-1.3); POTASSIUM - SERUM 3.4 mmol/L (3.5-5.1)
[2017-02-08 22:06] VITALS: BP 165/101; BMI 24.2
[2017-02-09 03:20] VITALS: BMI 24.2
[2017-02-09 07:14] LABS: HEMOGLOBIN A1C 5.3 % (4.8-6.0)
[2017-02-09 07:16] LABS: LDL-HDL RATIO 3.3 ratio (1.5-3.5)
[2017-02-09 14:55] VITALS: Ht 167.6 cm; Wt 68.0 kg
[2017-02-09 20:26] VITALS: BP 115/63
[2017-02-10 08:13] VITALS: BP 123/071
[2017-02-11 07:00] VITALS: BP 139/64
[2017-02-11 19:38] VITALS: BP 133/77
[2017-02-12 08:44] VITALS: BP 156/091
[2017-02-12 19:17] VITALS: BP 133/80
[2017-02-13 07:00] VITALS: BP 145/86
[2017-02-13 19:54] VITALS: BP 141/88
[2017-02-14 10:32] VITALS: BP 128/64
[2017-02-14 19:31] VITALS: BP 138/69
[2017-02-15 09:42] VITALS: BP 150/90
== END 2017-02-15 13:01 | disposition home or self-care (01) | DRG 57 ==
LOC: D.ER 14:08 → D.PSYCH 16:58
PROVIDERS: Emergency Medicine; Psychiatry & Neurology Psychiatry
DX: G20 Parkinson's disease (principal); F02.81 Dementia in other diseases classified elsewhere, unspecified severity, with behavioral disturbance; G30.9 Alzheimer's disease, unspecified; E55.9 Vitamin D deficiency, unspecified; R45.850 Homicidal ideations; E78.5 Hyperlipidemia, unspecified; N40.0 Benign prostatic hyperplasia without lower urinary tract symptoms; K21.9 Gastro-esophageal reflux disease without esophagitis; F22 Delusional disorders; Z87.891 Personal history of nicotine dependence

== ENCOUNTER 2017-03-14 19:33 | Emergency (ER) | payer OTHER ==
[2017-02-09 14:55] VITALS: BMI 24.2
[2017-03-14 20:35] LABS: BASOPHILS 0.3 % (0-2); EOSINOPHILS 0.4 % (0-7); HEMATOCRIT 42.1 % (42.0-54.0); HEMOGLOBIN 14.5 g/dL (13.5-17.5); IMMATURE GRANULOCYTES 0.5 % (0-5); LYMPHOCYTES 28.9 % (15-50); MCH 34.2 pg (26.0-34.0); MCHC 34.4 g/dL (31.0-37.0); MCV 99.3 fL (80.0-100.0); MONOCYTES 10.1 % (2-11); NEUTROPHILS 59.8 % (40-80); RBC 4.24 10x6/uL (4.20-6.10); RDW 13.2 % (11.5-14.5); WBC 10.5 10x3/uL (4.8-10.8)
[2017-03-14 20:58] LABS: PLATELET COUNT 198 10x3/uL (130-400)
[2017-03-14 21:04] LABS: APPEARANCE CLEAR (CLEAR); BILIRUBIN NEGATIVE (NEGATIVE); COLOR YELLOW (YELLOW); GLUCOSE NEGATIVE (NEGATIVE); KETONE NEGATIVE (NEGATIVE); NITRITE NEGATIVE (NEGATIVE); PROTEIN NEGATIVE (NEGATIVE); UROBILINOGEN NORMAL (NORMAL)
[2017-03-14 21:06] LABS: ALBUMIN 3.6 g/dL (3.4-5.0); ANION GAP 12.8 mmol/L (8-16); BILIRUBIN - TOTAL 0.52 mg/dL (0.2-1.3); CARBON DIOXIDE 27.5 mmol/L (21.0-32.0); CREATININE - SERUM 1.1 mg/dL (0.6-1.3); POTASSIUM - SERUM 4.3 mmol/L (3.5-5.1); PROTEIN - SERUM 7.2 g/dL (6.4-8.2)
== END 2017-03-14 23:00 | disposition left against medical advice (07) ==
LOC: D.ER 19:33
PROVIDERS: Family Medicine
DX: R10.84 Generalized abdominal pain (principal)

== ENCOUNTER 2017-03-15 13:36 | Emergency (ER) | payer OTHER ==
[2017-02-09 14:55] VITALS: BMI 24.2
[2017-03-15 16:38] LABS: BASOPHILS 0.2 % (0-2); EOSINOPHILS 0.4 % (0-7); HEMATOCRIT 40.4 % (42.0-54.0); HEMOGLOBIN 14.2 g/dL (13.5-17.5); IMMATURE GRANULOCYTES 0.5 % (0-5); LYMPHOCYTES 29.1 % (15-50); MCH 34.5 pg (26.0-34.0); MCHC 35.1 g/dL (31.0-37.0); MCV 98.3 fL (80.0-100.0); MONOCYTES 10.9 % (2-11); NEUTROPHILS 58.9 % (40-80); PLATELET COUNT 201 10x3/uL (130-400); RBC 4.11 10x6/uL (4.20-6.10); RDW 13.4 % (11.5-14.5); WBC 10.3 10x3/uL (4.8-10.8)
[2017-03-15 17:00] LABS: ALBUMIN 3.5 g/dL (3.4-5.0); ANION GAP 13.6 mmol/L (8-16); BILIRUBIN - TOTAL 0.6 mg/dL (0.2-1.3); CALCIUM 9.1 mg/dL (8.5-10.1); CARBON DIOXIDE 26.7 mmol/L (21.0-32.0); CREATININE - SERUM 1.1 mg/dL (0.6-1.3); POTASSIUM - SERUM 4.3 mmol/L (3.5-5.1)
[2017-03-15 17:30] LABS: APPEARANCE CLEAR (CLEAR); BILIRUBIN NEGATIVE (NEGATIVE); COLOR YELLOW (YELLOW); GLUCOSE NEGATIVE (NEGATIVE); KETONE NEGATIVE (NEGATIVE); NITRITE NEGATIVE (NEGATIVE); PROTEIN NEGATIVE (NEGATIVE); UROBILINOGEN NORMAL (NORMAL)
== END 2017-03-15 19:37 | disposition home or self-care (01) ==
LOC: D.ER 13:36
PROVIDERS: Emergency Medicine
DX: R10.31 Right lower quadrant pain (principal); R10.9 Unspecified abdominal pain

== ENCOUNTER 2017-04-24 12:35 | Inpatient (IN) | payer MEDICARE, OTHER ==
[~2017-04-24] VITALS: Ht 167.6 cm; Wt 51.0 kg
--- NOTE | ~2017-04-24 | CN ---
PATIENT NAME:LUCILA TSE MEDICAL RECORD: [id number] : 30 LOCATION:[facility] ADMIT DATE: 04/24/17 ACCOUNT: [id number] CONSULTING PHYSICIAN: ROSARIO HAYES MD REFERRING PHYSICIAN: STACI GOLDSMITH MD DATE OF CONSULTATION: 04/26/2017 IDENTIFYING DATA: The patient is 86 years old and known to me from previous clinical contact. CHIEF COMPLAINT: Confusion. HISTORY OF PRESENT ILLNESS: The patient has been hospitalized twice on the behavioral unit in the past 6 months. Both times, the patient was diagnosed with an advanced dementia and snf placement was recommended. Both times, the family did not consent to that. The patient currently is not aggressive or delusional and given the fact that he has a pneumonia and a urinary tract infection, I suspect his cognition looks a little worse than what is typically observed for those reasons. ASSESSMENT: 1. Senile dementia of the Alzheimer's type. 2. Parkinson disease. PLAN: The patient's cognition should return to its baseline once the infection has resolved. He has no evidence of aggressiveness or self-destructive behavior at this time and given our past experiences with him and his family's reluctance to place him in a long-term care facility, I do not think there is anything that we have to offer him outside of just simply saying that we would be glad to reconsider him for admission if he became violent, but it should be with the understanding from the family that he is in need of 99-kdaz-b-day supervision and unless they are willing to consent to that, I see little or no purpose in trying to treat him once again in this environment. TRANSINT:[id number] Voice Confirmation ID: [id number] DOCUMENT ID: [id number] ROSARIO HAYES MD at 1403 CC: [id number] DICTATION DATE: 04/26/17 1313 WATER JET OPERATOR: 04/26/17 1343 ADM IN [address] [place] [address]
[2017-04-24 13:22] LABS: BASOPHILS 0.1 % (0-2); EOSINOPHILS 0.2 % (0-7); HEMATOCRIT 38.4 % (42.0-54.0); HEMOGLOBIN 13.5 g/dL (13.5-17.5); IMMATURE GRANULOCYTES 0.3 % (0-5); LYMPHOCYTES 10.8 % (15-50); MCH 34.5 pg (26.0-34.0); MCHC 35.2 g/dL (31.0-37.0); MCV 98.2 fL (80.0-100.0); MEAN PLATELET VOLUME 10.1 fL (7.4-10.4); MONOCYTES 11.7 % (2-11); NEUTROPHILS 76.9 % (40-80); PLATELET COUNT 188 10x3/uL (130-400); RBC 3.91 10x6/uL (4.20-6.10); RDW 12.9 % (11.5-14.5)
[2017-04-24 13:36] LABS: ALBUMIN 3.2 g/dL (3.4-5.0); ALKALINE PHOSPHATASE 69 U/L (46-116); ALT (SGPT) 9 U/L (10-68); BILIRUBIN - TOTAL 0.79 mg/dL (0.2-1.3); CALC OSMOLALITY 276 mosm/kg (275-300); CALCIUM 8.9 mg/dL (8.5-10.1); CARBON DIOXIDE 22.3 mmol/L (21.0-32.0); CHLORIDE - SERUM 104 mmol/L (98-107); CREATININE - SERUM 1.2 mg/dL (0.6-1.3); GLUCOSE 125 mg/dL (74-106); POTASSIUM - SERUM 3.7 mmol/L (3.5-5.1); PROTEIN - SERUM 7.3 g/dL (6.4-8.2); SODIUM 138 mmol/L (136-145); UREA NITROGEN 12 mg/dL (7-18); eGFR NON AFRICAN AMERICAN 61 mL/min (90-120)
[2017-04-24 13:44] LABS: AMYLASE - SERUM 20 U/L (25-115); CREATINE KINASE 53 UL (21-232); LIPASE 87 U/L (73-393); MAGNESIUM - SERUM 1.9 mg/dL (1.8-2.4); PRO BNP 174 pg/mL (0-450)
[2017-04-24 13:45] LABS: INR 1.1 (0.85-1.17); PROTIME 13.8 SECONDS (11.6-15.0)
[2017-04-24 13:46] LABS: TROPONIN-I < 0.017 ng/mL (0.000-0.060)
[2017-04-24 14:12] LABS: APPEARANCE CLEAR (CLEAR); BILIRUBIN NEGATIVE (NEGATIVE); COLOR YELLOW (YELLOW); GLUCOSE NEGATIVE (NEGATIVE); KETONE NEGATIVE (NEGATIVE); NITRITE NEGATIVE (NEGATIVE); PROTEIN NEGATIVE (NEGATIVE); UROBILINOGEN NORMAL (NORMAL)
[2017-04-25 07:28] LABS: BASOPHILS 0.1 % (0-2); EOSINOPHILS 0.5 % (0-7); HEMATOCRIT 35.9 % (42.0-54.0); HEMOGLOBIN 12.4 g/dL (13.5-17.5); IMMATURE GRANULOCYTES 0.2 % (0-5); LYMPHOCYTES 22.8 % (15-50); MCH 34.1 pg (26.0-34.0); MCHC 34.5 g/dL (31.0-37.0); MCV 98.6 fL (80.0-100.0); MEAN PLATELET VOLUME 10.1 fL (7.4-10.4); MONOCYTES 10.7 % (2-11); NEUTROPHILS 65.7 % (40-80); PLATELET COUNT 181 10x3/uL (130-400); RBC 3.64 10x6/uL (4.20-6.10); RDW 12.8 % (11.5-14.5); WBC 9.3 10x3/uL (4.8-10.8)
[2017-04-25 08:16] LABS: ALBUMIN 2.8 g/dL (3.4-5.0); ANION GAP 13.3 mmol/L (8-16); BILIRUBIN - TOTAL 1.07 mg/dL (0.2-1.3); CARBON DIOXIDE 24.3 mmol/L (21.0-32.0); CREATININE - SERUM 1.1 mg/dL (0.6-1.3); POTASSIUM - SERUM 3.6 mmol/L (3.5-5.1); PROTEIN - SERUM 6.8 g/dL (6.4-8.2)
[2017-04-25 08:49] VITALS: BP 149/83
[2017-04-25 12:56] VITALS: BP 143/89
[2017-04-25 16:23] VITALS: BP 162/87
[2017-04-25 20:00] VITALS: BP 161/74
[2017-04-26 04:00] VITALS: BP 158/84
[2017-04-26 06:31] LABS: BASOPHILS 0.1 % (0-2); EOSINOPHILS 0.3 % (0-7); HEMATOCRIT 36.8 % (42.0-54.0); HEMOGLOBIN 12.8 g/dL (13.5-17.5); IMMATURE GRANULOCYTES 0.4 % (0-5); LYMPHOCYTES 18.9 % (15-50); MCH 33.7 pg (26.0-34.0); MCHC 34.8 g/dL (31.0-37.0); MCV 96.8 fL (80.0-100.0); MEAN PLATELET VOLUME 10.3 fL (7.4-10.4); MONOCYTES 11.4 % (2-11); NEUTROPHILS 68.9 % (40-80); PLATELET COUNT 202 10x3/uL (130-400); RDW 12.6 % (11.5-14.5); WBC 7.4 10x3/uL (4.8-10.8)
[2017-04-26 06:56] LABS: ALBUMIN 3.1 g/dL (3.4-5.0); ANION GAP 16.9 mmol/L (8-16); CALCIUM 9.2 mg/dL (8.5-10.1); CARBON DIOXIDE 23.4 mmol/L (21.0-32.0); CREATININE - SERUM 1.1 mg/dL (0.6-1.3); POTASSIUM - SERUM 3.3 mmol/L (3.5-5.1); PROTEIN - SERUM 7.2 g/dL (6.4-8.2)
[2017-04-26 07:58] VITALS: BP 169/96
[2017-04-26 11:06] VITALS: BP 143/89; Ht 167.6 cm; Wt 51.0 kg
[2017-04-26 12:17] VITALS: BP 164/63
[2017-04-26 16:08] VITALS: BP 115/63
[2017-04-26 20:00] VITALS: BP 151/80
[2017-04-27 04:00] VITALS: BP 140/86
[2017-04-27 05:27] LABS: BASOPHILS 0.2 % (0-2); HEMATOCRIT 34.5 % (42.0-54.0); HEMOGLOBIN 11.8 g/dL (13.5-17.5); IMMATURE GRANULOCYTES 0.6 % (0-5); LYMPHOCYTES 27.4 % (15-50); MCH 33.2 pg (26.0-34.0); MCHC 34.2 g/dL (31.0-37.0); MCV 97.2 fL (80.0-100.0); MEAN PLATELET VOLUME 10.4 fL (7.4-10.4); MONOCYTES 12.5 % (2-11); NEUTROPHILS 58.3 % (40-80); PLATELET COUNT 197 10x3/uL (130-400); RBC 3.55 10x6/uL (4.20-6.10); RDW 12.8 % (11.5-14.5); WBC 5.2 10x3/uL (4.8-10.8)
[2017-04-27 05:36] LABS: ALBUMIN 2.6 g/dL (3.4-5.0); ALKALINE PHOSPHATASE 61 U/L (46-116); CALC OSMOLALITY 279 mosm/kg (275-300); CALCIUM 8.7 mg/dL (8.5-10.1); CARBON DIOXIDE 23.9 mmol/L (21.0-32.0); CHLORIDE - SERUM 106 mmol/L (98-107); CREATININE - SERUM 0.9 mg/dL (0.6-1.3); GLUCOSE 94 mg/dL (74-106); POTASSIUM - SERUM 3.4 mmol/L (3.5-5.1); PROTEIN - SERUM 6.4 g/dL (6.4-8.2); SODIUM 141 mmol/L (136-145); UREA NITROGEN 10 mg/dL (7-18); eGFR NON AFRICAN AMERICAN 85 mL/min (90-120)
[2017-04-27 05:38] LABS: ALT (SGPT) 7 U/L (10-68)
[2017-04-27 08:04] VITALS: BP 169/87
[2017-04-27 12:14] VITALS: BP 132/88
[2017-04-27 16:16] VITALS: BP 120/84
[2017-04-27 20:00] VITALS: BP 136/64
[2017-04-28 04:00] VITALS: BP 133/84
[2017-04-28 04:52] LABS: BASOPHILS 0.3 % (0-2); EOSINOPHILS 1.1 % (0-7); HEMATOCRIT 35.6 % (42.0-54.0); HEMOGLOBIN 12.5 g/dL (13.5-17.5); IMMATURE GRANULOCYTES 0.4 % (0-5); LYMPHOCYTES 20.9 % (15-50); MCH 34.2 pg (26.0-34.0); MCHC 35.1 g/dL (31.0-37.0); MCV 97.5 fL (80.0-100.0); MEAN PLATELET VOLUME 10.4 fL (7.4-10.4); MONOCYTES 13.5 % (2-11); NEUTROPHILS 63.8 % (40-80); PLATELET COUNT 228 10x3/uL (130-400); RBC 3.65 10x6/uL (4.20-6.10); RDW 12.8 % (11.5-14.5)
[2017-04-28 05:01] LABS: WBC 7.9 10x3/uL (4.8-10.8)
[2017-04-28 05:22] LABS: ALBUMIN 2.8 g/dL (3.4-5.0); ANION GAP 16.2 mmol/L (8-16); BILIRUBIN - TOTAL 0.75 mg/dL (0.2-1.3); CREATININE - SERUM 1.1 mg/dL (0.6-1.3); POTASSIUM - SERUM 3.2 mmol/L (3.5-5.1); PROTEIN - SERUM 7.2 g/dL (6.4-8.2)
[2017-04-28 10:56] VITALS: BP 145/83
[2017-04-28 15:03] VITALS: BP 140/98
[2017-04-28 16:52] VITALS: BP 125/74
[2017-04-28 20:00] VITALS: BP 115/77
[2017-04-29] VITALS: BP 129/78
[2017-04-29 04:00] VITALS: BP 102/69; BP 138/70
[2017-04-29 05:38] LABS: BASOPHILS 0.1 % (0-2); EOSINOPHILS 1.2 % (0-7); HEMOGLOBIN 12.6 g/dL (13.5-17.5); IMMATURE GRANULOCYTES 0.7 % (0-5); LYMPHOCYTES 17.9 % (15-50); MCH 33.7 pg (26.0-34.0); MCHC 34.1 g/dL (31.0-37.0); MCV 98.9 fL (80.0-100.0); MEAN PLATELET VOLUME 10.2 fL (7.4-10.4); MONOCYTES 11.8 % (2-11); NEUTROPHILS 68.3 % (40-80); PLATELET COUNT 261 10x3/uL (130-400); RBC 3.74 10x6/uL (4.20-6.10); RDW 12.8 % (11.5-14.5); WBC 8.3 10x3/uL (4.8-10.8)
[2017-04-29 06:01] LABS: ALBUMIN 2.8 g/dL (3.4-5.0); ALKALINE PHOSPHATASE 64 U/L (46-116); CARBON DIOXIDE 23.1 mmol/L (21.0-32.0); CHLORIDE - SERUM 109 mmol/L (98-107); GLUCOSE 121 mg/dL (74-106); PROTEIN - SERUM 6.6 g/dL (6.4-8.2); SODIUM 146 mmol/L (136-145); eGFR NON AFRICAN AMERICAN 75 mL/min (90-120)
[2017-04-29 06:06] LABS: ALT (SGPT) 12 U/L (10-68); CALC OSMOLALITY 293 mosm/kg (275-300); UREA NITROGEN 18 mg/dL (7-18)
[2017-04-29 08:07] VITALS: BP 142/80
[2017-04-29 11:57] VITALS: BP 136/75
[2017-04-29 15:29] VITALS: BP 151/94
[2017-04-29 20:55] VITALS: BP 153/91
[2017-04-30 05:40] VITALS: BP 181/96
[2017-04-30 06:27] LABS: BASOPHILS 0.1 % (0-2); EOSINOPHILS 0.1 % (0-7); HEMATOCRIT 36.6 % (42.0-54.0); HEMOGLOBIN 12.6 g/dL (13.5-17.5); IMMATURE GRANULOCYTES 0.8 % (0-5); LYMPHOCYTES 10.6 % (15-50); MCH 34.1 pg (26.0-34.0); MCHC 34.4 g/dL (31.0-37.0); MCV 98.9 fL (80.0-100.0); MONOCYTES 6.5 % (2-11); NEUTROPHILS 81.9 % (40-80); PLATELET COUNT 265 10x3/uL (130-400); RDW 12.8 % (11.5-14.5); WBC 13.7 10x3/uL (4.8-10.8)
[2017-04-30 06:58] LABS: ALBUMIN 2.6 g/dL (3.4-5.0); ANION GAP 17.8 mmol/L (8-16); CARBON DIOXIDE 20.8 mmol/L (21.0-32.0); CREATININE - SERUM 1.1 mg/dL (0.6-1.3); POTASSIUM - SERUM 3.6 mmol/L (3.5-5.1); PROTEIN - SERUM 7.4 g/dL (6.4-8.2)
[2017-04-30 09:39] VITALS: BP 162/87
[2017-04-30 13:56] VITALS: BP 160/83
[2017-04-30 17:17] VITALS: BP 133/75
[2017-04-30 20:00] VITALS: BP 152/94
[2017-05-01 04:00] VITALS: BP 144/81
[2017-05-01 06:28] LABS: BASOPHILS 0.2 % (0-2); EOSINOPHILS 0.1 % (0-7); HEMOGLOBIN 12.1 g/dL (13.5-17.5); IMMATURE GRANULOCYTES 1.3 % (0-5); LYMPHOCYTES 10.4 % (15-50); MCHC 33.6 g/dL (31.0-37.0); MEAN PLATELET VOLUME 10.3 fL (7.4-10.4); MONOCYTES 7.3 % (2-11); NEUTROPHILS 80.7 % (40-80); PLATELET COUNT 260 10x3/uL (130-400); RBC 3.56 10x6/uL (4.20-6.10); RDW 12.9 % (11.5-14.5); WBC 15.4 10x3/uL (4.8-10.8)
[2017-05-01 06:32] LABS: MCV 101.1 fL (80.0-100.0)
[2017-05-01 06:43] LABS: ALBUMIN 2.5 g/dL (3.4-5.0); ANION GAP 15.6 mmol/L (8-16); BILIRUBIN - TOTAL 1.2 mg/dL (0.2-1.3); CALCIUM 9.5 mg/dL (8.5-10.1); CARBON DIOXIDE 23.7 mmol/L (21.0-32.0); CREATININE - SERUM 1.1 mg/dL (0.6-1.3); POTASSIUM - SERUM 3.3 mmol/L (3.5-5.1); PROTEIN - SERUM 7.3 g/dL (6.4-8.2)
[2017-05-01 08:06] VITALS: BP 148/74
[2017-05-01 11:42] VITALS: BP 152/93
[2017-05-01 16:27] VITALS: BP 129/74
[2017-05-01 20:00] VITALS: BP 151/91
[2017-05-02 04:00] VITALS: BP 144/77
[2017-05-02 05:10] LABS: HEMATOCRIT 37.9 % (42.0-54.0); HEMOGLOBIN 12.8 g/dL (13.5-17.5); MCH 33.9 pg (26.0-34.0); MCHC 33.8 g/dL (31.0-37.0); MCV 100.3 fL (80.0-100.0); MEAN PLATELET VOLUME 10.7 fL (7.4-10.4); PLATELET COUNT 276 10x3/uL (130-400); RBC 3.78 10x6/uL (4.20-6.10); RDW 13.2 % (11.5-14.5); WBC 21.7 10x3/uL (4.8-10.8)
[2017-05-02 05:25] LABS: ALBUMIN 2.3 g/dL (3.4-5.0); ANION GAP 21.8 mmol/L (8-16); BILIRUBIN - TOTAL 1.1 mg/dL (0.2-1.3); CALCIUM 9.8 mg/dL (8.5-10.1); CARBON DIOXIDE 19.6 mmol/L (21.0-32.0); POTASSIUM - SERUM 3.4 mmol/L (3.5-5.1); PROTEIN - SERUM 7.5 g/dL (6.4-8.2)
[2017-05-02 05:30] LABS: CREATININE - SERUM 2.8 mg/dL (0.6-1.3)
[2017-05-02 05:59] LABS: LYMPHOCYTES 8 % (15-50); MONOCYTES 3 % (2-11); NEUTROPHILS 78 % (40-80); PLATELET ESTIMATE NORMAL; PLATELET MORPHOLOGY GIANT PLTS PRESENT
[2017-05-02 08:24] VITALS: BP 144/52
[2017-05-02 12:44] VITALS: BP 124/86
[2017-05-02 16:05] VITALS: BP 101/71
[2017-05-02 20:23] VITALS: BP 101/67
[2017-05-03 00:19] VITALS: BP 129/60
[2017-05-03 03:38] VITALS: BP 125/65
[2017-05-03 05:09] LABS: ALBUMIN 2.1 g/dL (3.4-5.0); BILIRUBIN - TOTAL 0.66 mg/dL (0.2-1.3); CALCIUM 9.8 mg/dL (8.5-10.1); CARBON DIOXIDE 24.1 mmol/L (21.0-32.0); PROTEIN - SERUM 7.3 g/dL (6.4-8.2); VANCOMYCIN - RANDOM 31.2 ug/mL (10.0-20.0)
[2017-05-03 05:17] LABS: CREATININE - SERUM 4.6 mg/dL (0.6-1.3); POTASSIUM - SERUM 4.1 mmol/L (3.5-5.1)
[2017-05-03 05:27] LABS: BASOPHILS 0.2 % (0-2); EOSINOPHILS 0 % (0-7); HEMATOCRIT 37.5 % (42.0-54.0); HEMOGLOBIN 12.2 g/dL (13.5-17.5); IMMATURE GRANULOCYTES 1.4 % (0-5); MCH 34.1 pg (26.0-34.0); MCHC 32.5 g/dL (31.0-37.0); MCV 104.7 fL (80.0-100.0); MEAN PLATELET VOLUME 10.5 fL (7.4-10.4); MONOCYTES 5.8 % (2-11); NEUTROPHILS 86.6 % (40-80); PLATELET COUNT 241 10x3/uL (130-400); RBC 3.58 10x6/uL (4.20-6.10); RDW 13.7 % (11.5-14.5); WBC 26.7 10x3/uL (4.8-10.8)
[2017-05-03 08:11] VITALS: BP 130/70
[2017-05-03 12:46] VITALS: BP 122/62
== END 2017-05-03 13:22 | disposition hospice, inpatient (51) | DRG 177 ==
LOC: D.ER 12:35 → D.EDHOLD 22:14 → D.MS 22:14
PROVIDERS: Family Medicine; Family Medicine Adult Medicine; Nurse Practitioner Family
DX: J69.0 Pneumonitis due to inhalation of food and vomit (principal); J96.01 Acute respiratory failure with hypoxia; K56.7 Ileus, unspecified; G91.2 (Idiopathic) normal pressure hydrocephalus; N39.0 Urinary tract infection, site not specified; E78.5 Hyperlipidemia, unspecified; N40.0 Benign prostatic hyperplasia without lower urinary tract symptoms; G20 Parkinson's disease; G30.9 Alzheimer's disease, unspecified; F02.80 Dementia in other diseases classified elsewhere, unspecified severity, without behavioral disturbance, psychotic disturbance, mood disturbance, and anxiety; K59.00 Constipation, unspecified; B96.89 Other specified bacterial agents as the cause of diseases classified elsewhere

== ENCOUNTER 2017-05-03 13:22 | Inpatient (IN) | payer OTHER ==
[~2017-05-03] VITALS: Ht 167.6 cm; Wt 50.9 kg
[2017-05-03 18:57] VITALS: BP 122/62; BMI 18.1
[2017-05-03 19:49] VITALS: BP 119/65
[2017-05-24 13:21] VITALS: Ht 167.6 cm; Wt 50.9 kg
== END 2017-05-03 23:35 | DRG 951 ==
LOC: D.MS 13:22
DX: Z51.5 Encounter for palliative care (principal)